=== PATIENT | male | born 1995 | race African-American/Black ===

== ENCOUNTER 2023-04-27 02:55 | Emergency (ER) | payer SELFPAY ==
[~2023-04-27] VITALS: Ht 180.3 cm; Wt 87.0 kg
[2023-04-27 02:59] VITALS: BP 136/78; PULSE 110; RESP 18; TEMP 98.3; O2SAT 99
== END 2023-04-27 04:00 | disposition home or self-care (01) ==
LOC: ER 02:55
DX: H05.231 Hemorrhage of right orbit (principal)
CPT/HCPCS: 99283